=== PATIENT | male | born 2000 | race Caucasian/White ===

== ENCOUNTER → 2019-01-04 15:59 | Outpatient (CLI) | payer BC, SELFPAY ==
--- NOTE | 2019-01-04 16:06 | US_ITS ---
US scrotum HISTORY: ITS.REASON: LEFT TESTICULAR PAIN ORDERING PHYSICIAN: Florencio Trujillo MD PATIENT AGE: 18 years Comparison: None FINDINGS: RIGHT TESTICLE: The right testicle has an unremarkable appearance measuring 4.1 x 2.5 x 4.1 cm. No testicular mass, hydrocele, spermatocele, or varicocele evident. Blood flow is noted to the right testicle. LEFT TESTICLE: The left testicle has an unremarkable appearance measuring4 x 2.7 x 2.8 cm. No mass, hydrocele, spermatocele, or varicocele evident. Blood flow is noted to the left testicle. There is a minimal amount fluid noted around the left testicle. This however may be within normal limits. IMPRESSION: Unremarkable scrotal ultrasound
== END ==
PROVIDERS: PCP Family Medicine; Visit Provider Family Medicine
DX: N50.812 Left testicular pain (principal)
CPT/HCPCS: 76870

== ENCOUNTER → 2020-04-23 09:17 | Outpatient (CLI) | payer BC, SELFPAY ==
[2020-04-24 14:08] LABS: Covid-19 Nasal PCR Sendout Lex NOT DETECTED
== END ==
LOC: UTC.OUT 09:22 → COVID.OUT 09:38
PROVIDERS: PCP Family Medicine; Visit Provider Family Medicine
DX: Z03.818 Encounter for observation for suspected exposure to other biological agents ruled out (principal)
CPT/HCPCS: U0004

== ENCOUNTER 2020-09-25 14:00 | Outpatient (RCR) | payer BC, SELFPAY | END 2020-09-25 14:05 | disposition home or self-care (01) | LOC: OT 14:00 | PROVIDERS: PCP Family Medicine; Visit Provider Surgery Plastic and Reconstructive Surgery | DX: M79.642 Pain in left hand (principal) | CPT/HCPCS: 97010; 97110; 97140; 97165; 97530 ==

== ENCOUNTER → 2021-08-26 14:40 | Outpatient (CLI) | payer BC, SELFPAY ==
--- NOTE | 2021-08-26 14:43 | XR_ITS ---
PROCEDURE: XR RIBS LT MIN 3V W CXR1V CLINICAL INDICATION: LT SIDED CHEST WALL PAIN COMPARISON: CR CXR CHEST(2 VIEWS-NOT PORTABLE) from 06/20/2017 FINDINGS: Frontal view of the chest shows no acute finding. Three views of the left ribs shows no acute fracture or dislocation. No lytic or blastic change. IMPRESSION: No acute findings. Dictated by: Ezra Thomas MD 08/26/2021 15:06 Ezra Thomas MD in [place] 08/26/2021 15:06
== END ==
PROVIDERS: PCP Family Medicine; Visit Provider Family Medicine
DX: R07.89 Other chest pain (principal)
CPT/HCPCS: 71101

== ENCOUNTER 2022-08-23 12:40 | Emergency (ER) | payer BC, SELFPAY ==
[2022-08-23 13:54] VITALS: BP 135/63; PULSE 90; RESP 18; TEMP 37.1; O2SAT 97; BMI 28.5
--- NOTE | 2022-08-23 14:00 | EXP.UTC ---
Discharge Plan Disposition Patient Disposition: Home, Self-Care Condition: Good Prescriptions Prescriptions: New olkmftfemarlntq-hsmmtfvnl-RD [Bromfed DM] 2-30-10 mg/5 mL Syrup 5 ml PO Q6H PRN (Reason: Cough) Qty: 240 0RF amoxicillin-pot clavulanate 875-125 mg Tablet 1 tab PO Q12H Qty: 20 0RF Referrals Follow up/Referrals: Florencio Trujillo MD [Primary Care Provider] - See instructions Activity Restrictions/Add. Instructions Additional Instructions/Restrictions: Drink plenty of fluids. Take tylenol or ibuprofen for pain or fever. Take the medications as directed. Follow up with your regular doctor. GO TO THE ER FOR ANY WORSENING SYMPTOMS Clinical Impressions Clinical Impression: Strep throat Stand Alone Forms Stand Alone Forms: Work/School Release Instructions Patient Instructions: Strep Throat, DI for Strep Throat Discharge ED Provider: Rosales Anderson [facility] General Stated complaint: Sore throat, fever. Flu/Strep test Mode of Arrival: Ambulatory Source of Information: Patient Limitations: No Limitations Time Seen by Provider: 08/23/22 14:00 Description of Symptoms (Recalled from Triage Doc. by RN): pt comes in with sore throat and fever that began last night HEENT Symptoms (Recalled from RN notes): Yes Resp Symptoms (Recalled from RN notes): No Skin Symptoms (Recalled from RN notes): No MS Symptoms (Recalled from RN notes): No Functional Status (Recalled from RN notes): n/a History of Present Illness Provider Complaint: He c/o sore throat for the past 2 days. He has had a fever and chills also. Related Data Previous Rx's Medication Instructions Recorded amoxicillin 875 mg-potassium 1 tab PO Q12H #20 tabs 08/23/22 clavulanate 125 mg tablet tpcuaspcccnobfa-ofxmfrxyxdqwlsc-JU 5 ml PO Q6H PRN Cough #240 mL 08/23/22 2 mg-30 mg-10 mg/5 mL oral syrup (Bromfed DM) Allergies Allergy/AdvReac Type Severity Reaction Status Date / Time No Known Allergies Allergy Unverified 09/26/17 15:05 Worker's Comp Is this a Worker's Comp case?: No PFSH PFSH Social History Smoking Status: Never smoker alcohol intake: never current occupational status: employed Travel in the last 8 weeks: None ROS Obtained: Yes All systems reviewed & no additional complaints except as documented Constitutional Constitutional: Reports chills and Reports fever(s) Eyes Eyes: Denies eye discharge ENT Ears, Nose, Mouth, and Throat: Reports as per HPI Cardiovascular Cardiovascular: Denies chest pain Respiratory Respiratory: Denies chest congestion and Reports cough Gastrointestinal Gastrointestingal: Reports nausea; Denies abdominal pain, constipation, cramping, diarrhea or vomiting Musculoskeletal Musculoskeletal: Denies arthralgias Integumentary/Breasts Skin/Breast: Denies rash Neurologic Neurologic: Denies paresthesias Physical Exam General General appearance: alert and in no apparent distress Head Head exam: atraumatic, normocephalic and normal inspection Eye Eye exam: Present normal appearance, PERRL and EOMI ENT ENT exam: Present mucous membranes moist and normal external ear exam Expanded ENT Exam TM/Canal exam: Bilateral TM: erythema and bulging Nose exam: Absent sinus tenderness Mouth exam: Present normal external inspection; Absent drooling Teeth exam: Present normal inspection Throat exam: Present tonsillar erythema, tonsillomegaly and tonsillar exudate Neck Neck exam: Present normal inspection, full ROM and trachea midline; Absent tenderness, meningismus or lymphadenopathy Chest Chest inspection: Present normal inspection and symmetric chest wall rise; Absent tenderness Respiratory Respiratory exam: Present normal lung sounds bilaterally; Absent respiratory distress, wheezes or stridor Cardiovascular Cardiovascular exam: Present regular rate and normal rhythm; Absent systolic murmur or diastolic murmur Abdominal Exam Abd
[2022-08-23 14:07] LABS: UTC Strep Screen (Rapid) Positive (Negative)
[2022-08-23 14:43] VITALS: BP 135/63; PULSE 90; RESP 18; TEMP 37.1
== END 2022-08-23 14:47 | disposition home or self-care (01) ==
PROVIDERS: Emergency Provider Nurse Practitioner Family; PCP Family Medicine
DX: J02.0 Streptococcal pharyngitis (principal)
CPT/HCPCS: 87880; 96372; 99212; G0463

== ENCOUNTER 2023-09-19 15:11 | Emergency (ER) | payer BC, SELFPAY ==
--- NOTE | 2023-09-19 15:59 | EXP.UTC ---
Discharge Plan Disposition Patient Disposition: Home, Self-Care Condition: Good Prescriptions Prescriptions: New amoxicillin [amoxicillin] 500 mg tablet 500 mg PO TID 10 Days Qty: 30 0RF thcyembknsoivma-zahfcabrp-MU [Bromfed DM] 2-30-10 mg/5 mL Syrup 5 ml PO Q6H PRN (Reason: Cough) Qty: 240 0RF Referrals Follow up/Referrals: Florencio Trujillo MD [Primary Care Provider] - See instructions Activity Restrictions/Add. Instructions Additional Instructions/Restrictions: Drink plenty of fluids. Take tylenol or ibuprofen for pain or fever. Take the medications as directed. Follow up with your regular doctor. GO TO THE ER FOR ANY WORSENING SYMPTOMS Clinical Impressions Clinical Impression: Pharyngitis Instructions Patient Instructions: Sore Throat, DI for Pharyngitis/Tonsillopharyngitis -- Adult Discharge ED Provider: Rosales Anderson [facility] [place] General Stated complaint: strep test Time Seen by Provider: 09/19/23 15:59 History of Present Illness Provider Complaint: He states that for the past 2 days he has had sore throat. He has been exposed to strep throat. Related Data Previous Rx's Medication Instructions Recorded amoxicillin 500 mg tablet 500 mg PO TID 10 days #30 tabs 09/19/23 oxtqcwpxllmxnbb-crowhanhpiewpvi-OY 5 ml PO Q6H PRN Cough #240 mL 09/19/23 2 mg-30 mg-10 mg/5 mL oral syrup (Bromfed DM) Allergies Allergy/AdvReac Type Severity Reaction Status Date / Time No Known Allergies Allergy Verified 09/19/23 16:16 [facility] Disclaimer: The information contained in this section may have been updated after the patient was seen, as this information can be updated by other users. Social History Smoking Status: Never smoker alcohol intake: never current occupational status: employed Travel in the last 8 weeks: None ROS Obtained: Yes All systems reviewed & no additional complaints except as documented Constitutional Constitutional: Reports chills and Reports fever(s) Eyes Eyes: Denies eye discharge ENT Ears, Nose, Mouth, and Throat: Reports as per HPI Cardiovascular Cardiovascular: Denies chest pain Respiratory Respiratory: Denies chest congestion and Reports cough Gastrointestinal Gastrointestingal: Reports nausea; Denies abdominal pain, constipation, cramping, diarrhea or vomiting Musculoskeletal Musculoskeletal: Denies arthralgias Integumentary/Breasts Skin/Breast: Denies rash Neurologic Neurologic: Denies paresthesias Physical Exam General General appearance: alert and in no apparent distress Head Head exam: atraumatic, normocephalic and normal inspection Eye Eye exam: Present normal appearance, PERRL and EOMI ENT ENT exam: Present mucous membranes moist and normal external ear exam Expanded ENT Exam TM/Canal exam: Bilateral TM: erythema and bulging Nose exam: Absent sinus tenderness Mouth exam: Present normal external inspection; Absent drooling Teeth exam: Present normal inspection Throat exam: Present tonsillar erythema, tonsillomegaly and tonsillar exudate Neck Neck exam: Present normal inspection, full ROM and trachea midline; Absent tenderness, meningismus or lymphadenopathy Chest Chest inspection: Present normal inspection and symmetric chest wall rise; Absent tenderness Respiratory Respiratory exam: Present normal lung sounds bilaterally; Absent respiratory distress, wheezes or stridor Cardiovascular Cardiovascular exam: Present regular rate and normal rhythm; Absent systolic murmur or diastolic murmur Abdominal Exam Abdominal exam: Present soft and normal bowel sounds; Absent distention, tenderness, guarding, rebound or rigidity Extremities Exam Extremities exam: Present normal inspection and normal capillary refill; Absent calf tenderness Back Exam Back exam: Present normal inspection and full ROM; Absent tenderness, CVA tenderness (R) or CVA tenderness (L) Neurological Exam Neurological exa
[2023-09-19 16:00] VITALS: BP 147/81; PULSE 82; RESP 18; TEMP 36.8; O2SAT 98; BMI 29.2
[2023-09-19 16:12] LABS: UTC Strep Screen (Rapid) Negative (Negative)
[2023-09-19 16:29] VITALS: BP 147/81; PULSE 82; RESP 18; TEMP 36.8; O2SAT 98
== END 2023-09-19 16:29 | disposition home or self-care (01) ==
PROVIDERS: Emergency Provider Nurse Practitioner Family; PCP Family Medicine
DX: J02.9 Acute pharyngitis, unspecified (principal); R50.9 Fever, unspecified; Z20.818 Contact with and (suspected) exposure to other bacterial communicable diseases
CPT/HCPCS: 87880; 99212; 99214; G0463

== ENCOUNTER 2023-10-25 08:30 | Outpatient (RCR) | payer BC, SELFPAY ==
--- NOTE | 2023-09-26 13:51 | HMH.PTOPEV ---
PT Outpatient Evaluation Rehab PT Outpatient Evaluation Start: 09/26/23 13:30 Freq: Status: Active Protocol: Document 09/26/23 13:30 AXEL (Rec: 09/26/23 13:51 AXEL [id number]) E-signed By Everette Tirado, PT Outpatient Therapy Subjective History Subjective History Pt reports acute onset right sided LBP beginning ~4 days ' after hopping out of a truck bed.' Pt reports feeling 'a jolt' in the right low back region, reports pain and s/s have progressed with right sided LBP, referred and radicular pain down RLE to R grt toe. Pt reports no changes in s/s with steroids,mm relaxers meds. New diagnosis of cancer in past 12 No months? Chief Complaint Pain,Stiff,Paresthesia Symptom Type Ache,Throb,Dull,Stabbing, Shooting Symptoms Relieved By Rest/Positioning,Heat Symptoms Aggravated By Sitting,Twisting Prior Functional Limitations None Current Functional Limitations Lifting,Sitting,Bending/ Stooping Symptom Description Constant but Variable Level of pain today (0-10) 7 Pain scale - at its best (0-10) 6 Pain scale - at its worst (0-10) 9 Lumbopelvic Eval Posture Thoracic Spine Posture Standing Position Neutral Lumbar Spine Posture Standing Position Neutral Assistive device Assistive Devices None / NA Gait Observation General Gait Pattern Observation No Deviations/Normal Palapation tenderness right lumbar spinal tenderness Yes: 2-3/4 paraspinal tenderness Yes: 3/4 buttock tenderness Yes: 1/4 Lumbar/Sacral Palpation Findings Tenderness,Trigger Point, Muscle Guarding Accessory Movement L-spine Vertebrae Accessory Movements [place] [employer] [place] that E[place]it Symptoms L5 right Range of Motion Lumbar Spine Active Flexion Range of 0-50 Motion (degrees) Lumbar Spine Active Extension Range of 0-20 Motion (degrees) Left Lumbar Spine Lateral Flexion Active 0-30 Range of Motion (degrees) Right Lumbar Spine Lateral Flexion 0-30 Active Range of Motion (degrees) Lumbar Spine ROM Limitations Soft Tissue Tightness,Pain Manual Muscle Test Left Knee Extension Strength Grade 5 Normal Knee Flexion Strength Grade 5 Normal Hip Flexion Strength Grade 5 Normal Extensor Hallucis Longus Strength Grade 5 Normal Ankle Dorsiflexion Strength Grade 5 Normal Gastronemius/Soleus Strength Grade 5 Normal Right Knee Extension Strength Grade 5 Normal Knee Flexion Strength Grade 5 Normal Hip Flexion Strength Grade 4 Good Extensor Hallucis Longus Strength Grade 5 Normal Ankle Dorsiflexion Strength Grade 5 Normal Gastronemius/Soleus Strength Grade 5 Normal Special Tests Hip Piriformis Test Negative Left,Negative Right Sciatic Nerve Tension Test Negative Left,Negative Right Lumbar [place] Distraction Test/Manual Negative Traction Oswestry Index Section 1 Pain Intensity The pain is moderate and does not vary much Section 2 Personal Care (Washing,Dresing) change my way of washing or dressing in order to avoid pain Section 3 Lifting lifting heavy weights off the floor, but I can manage if they are Section 4 Walking I cannot walk more than one mile wihtout increasing pain Section 5 Sitting Pain prevents me from sitting for more than one hour Section 6 Standing I cannot stand more than 1/2 hour without increasing pain Section 7 Sleeping I get pain in bed, but it does not prevent me from sleeping well Section 8 Social Life Pain has no significant effect on my social life apart from limiting Section 9 Traveling I get some pain when traveling , but none of my usual forms of travel m Section 10 Changing Degreee of Pain My pain is neither getting better or worse Score and Risk Level Oswestry Sc 20 Oswestry Risk Level Moderate Disability Outpatient Therapy Assessment Impairments Problems/Impairmments Palpation Tenderness,Impaired Range of Motion,Impaired Strength,Impaired Walking, Impaired Standing,Impaired Sitting,Impaired Lifting, Impaired Household Care, Subjective C/O Pain,Impaired Self Care/Self Management Prognosis Rehab Potential Good Clinical Impression Consistent with Diagnosis Yes Short Term Goals Number of Weeks 4 Decreased Palpation Tenderness Yes: 1-2/4 lumbar mm Increase Range of Motion Yes: 75% OF WFL LUMABR AROM Increase Strength Yes: 4+/5 RIGHT HIP FLX Increase Ability to Walk Yes: 30MIN Increase Ability to Stand Yes: 30MIN Increase Ability to Sit Yes: 30MIN Improve Oswestry Score Yes: 12-14 Decrease Subjective C/O Pain Yes: 3-4/10 W/ABOVE ACTIVITIES Patient to be Ind w/ HEP Yes Halfway Goals Number of Weeks 6-8 Decreased Palpation Tenderness Yes: 0-1/4 LUMBAR PARA. MM Increase Range of Motion Yes: WFL LUMBAR AROM Increase Strength Yes: 5/5 RIGHT HIP FLX Increase Ability to Walk Yes: 60MIN Increase Ability to Stand Yes: 60MIN Increase Ability to Sit Yes: 60MIN Restore Ability to Lift Objects to Waist Yes: 15-20# Level Improve Oswestry Score Yes: 5-7 Decrease Subjective C/O Pain Yes: 0-2/10 W/ABOVE ACTIVITIES Patient to be Ind w/ Advanced HEP Yes Outpatient Therapy Plan of Care Treatment Plan May Include Therapeutic Exercise Including Home Yes Exercise Program Manual Therapy Techniques Yes Neuromuscular Re-education Yes Therapeutic Activities to Return to Yes Previous Functional/Work Level Gait Training Yes ADL/Self Care Education Yes Mechanical Traction Yes Dry Needling Yes Thermal Modalities Yes Electrical Stimulation Yes Ultrasound/Phonophoresis Yes Eval/Re-Eval Yes Frequency Times per week 2-3 Duration Number of Weeks 6-8 Addendums This patient is a candidate for social No or vocational rehab? Patient/Guardian verbally acknowledges Yes understanding of treatment program and consents to further treatment? Patient/Guardian verbally acknowledges Yes understanding of diagnosis, prognosis and goals for treatment? Eval Complexity PT Charges 22574 - Moderate Complexity Shoulder/Elbow Eval Shoulder Objective Measurements Elbow Objective Measurements PHYSICIAN CERTIFICATION: I certify the specified therapy services for Ap Gonzalez are required, authorized, and reviewed every 30 days.
== END 2023-10-25 09:30 | disposition home or self-care (01) ==
LOC: PT 08:30
PROVIDERS: PCP Family Medicine; Visit Provider Family Medicine
DX: M54.50 Low back pain, unspecified (principal); M54.41 Lumbago with sciatica, right side; M62.830 Muscle spasm of back
CPT/HCPCS: 20560; 97010; 97014; 97110; 97163; 97530; G0283